=== PATIENT | female | born 1955 | race Caucasian/White ===

== ENCOUNTER 2017-08-30 17:16 | Emergency (ER) | payer BC ==
[~2017-08-30] VITALS: Ht 167.6 cm; Wt 81.7 kg
[2017-08-30] MEDS ORDERED: OMEPRAZOLE20 MG PO (17:43)
--- OUTSIDE RECORDS SUMMARY | 2017-08-30 18:04 | XMS | Clinical Summary ---
Demographics + + + | Address | [address] | | | [place] [address] | + + + | Home Phone | | + + + | Preferred Language | Unknown | + + + | Marital Status | | + + + | Samaritan Affiliation | NRP | + + + | Race | White | + + + | Ethnic Group | Not or | + + + Author + + + | Author | [facility] | + + + | Organization | [facility] | + + + | Address | Unknown | + + + | Phone | Unavailable | + + + Support + + + + + | Name | Relationship | Address | Phone | + + + + + | NEVILLE TEJADA | ECON | [address] | | | | | [place] | | | | | [phone] | | + + + + + Care Team Providers + +------+ + | Care Vein Pumper Name | Role | Phone | + +------+ + | Giovany Robert MD | PP | | + +------+ + Source Comments CHAD is fully live on both EpicCare Ambulatory and EpicCare InPatient.Replaced By [facility] Allergies + + + + + + | Active Allergy | Reactions | Severity | Noted | Comments | | | | | Date | | + + + + + + | Oxycodone | Nausea | Medium | 06/06/20 | | | | | | 11 | | + + + + + + | Oxycodone Hcl | Nausea | Medium | 06/06/20 | | | | | | 11 | | + + + + + + | Sulfa (Sulfonamide | Hives | | 09/29/19 | | | Antibiotics) | | | 11 | | + + + + + + Current Medications + + + +---------+------+------+-------+ | Prescription | Sig. | Disp. | Refills | Star | End | Statu | | | | | | t | Date | s | | | | | | Date | | | + + + +---------+------+------+-------+ | omeprazole 20 mg | Take 20 mg by mouth | | | | | Activ | | Oral Capsule, | once daily in the | | | | | e | | Delayed | morning. | | | | | | | Release(E.C.) | | | | | | | + + + +---------+------+------+-------+ | acetaminophen 325 | Take 1-2 Tabs by | 100 Tab | 0 | 02/2 | | Activ | | mg Oral | mouth every six | | | 7/20 | | e | | TabletIndications: | hours as needed for | | | 12 | | | | Arthritic Pain, Pain | fever or moderate | | | | | | | | pain. Indications: | | | | | | | | Arthritic Pain, Pain | | | | | | + + + +---------+------+------+-------+ | multivitamin oral | Take 1 capsule by | | | | | Activ | | capsule | mouth once daily. | | | | | e | + + + +---------+------+------+-------+ | ERGOCALCIFEROL, | Take 1 tablet by | | | | | Activ | | VITAMIN D2, (VITAMIN | mouth once daily. | | | | | e | | D ORAL) | | | | | | | + + + +---------+------+------+-------+ | CALCIUM ORAL | Take 2 tablets by | | | | | Activ | | | mouth once daily. | | | | | e | | | Gummark bear | | | | | | + + + +---------+------+------+-------+ Active Problems + + + | Problem | Noted Date | + + + | Severe chronic ulcerative colitis (HCC) | 11/22/2010 | + + + | Physical deconditioning | 10/06/2010 | + + + | S/P IVC filter | 10/04/2010 | + + + + + | Overview: Consider removal 6 weeks post insertion. | + + + + + | S/P thoracotomy | 09/30/2010 | + + + | PE (pulmonary embolism) | 09/28/2010 | + + + + + | Overview: Hematology recommends indefinite anticoagulation. | + + + + + | GI bleed | 09/28/2010 | + + + | Ulcerative colitis (HCC) | 09/28/2010 | + + + | Psoriasis | 09/28/2010 | + + + Family History + + +------+ + | Medical History | Relation | Name | Comments | + + +------+ + | Cancer | Father | | melanoma | + + +------+ + | Diabetes | Father | | | + + +------+ + | Heart Disease | Father | | s/p pacer | + + +------+ + | Hypertension | Father | | | + + +------+ + | Cancer | Mother | | breast | + + +------+ + | Dementia | Mother | | | + + +------+ + | Cancer | Paternal | | colon cancer at 70+ | | | Grandmoth | | | | | er | | | + + +------+ + | GI | Neg Hx | | no IBD | + + +------+ + + +------+--------+ + | Relation | Name | Status | Comments | + +------+--------+ + | Father | | | | + +------+--------+ + | Mother | | | | + +------+--------+ + | Paternal Grandmother | | | | + +------+--------+ + Social History + +-------+ +--------+------+ | Tobacco Use | Types | Packs/Day | Years | Date | | | | | Used | | + +-------+ +--------+------+ | Never Smoker | | | | | + +-------+ +--------+------+ + +---+---+---+ | Smokeless Tobacco: | | | | | Never Used | | | | + +---+---+---+ + + +---------+ + | Alcohol Use | Drinks/We | oz/Week | Comments | | | ek | | | + + +---------+ + | No | | | none since 2009 | + + +---------+ + + + + | Sex Assigned at | Date Recorded | | | | + + + | Not on file | | + + + Last Filed Vital Signs + + + + | Vital Sign | Reading | Time Taken | + + + + | Blood Pressure | 150/92 | 10/23/2016 1:40 PM PDT | + + + + | Pulse | 76 | 10/23/2016 1:40 PM PDT | + + + + | Temperature | 36.7 C (98.1 F) | 10/23/2016 1:40 PM PDT | + + + + | Respiratory Rate | 16 | 10/23/2016 1:40 PM PDT | + + + + | Oxygen Saturation | 100% | 10/23/2016 1:40 PM PDT | + + + + | Inhaled Oxygen | - | - | | Concentration | | | + + + + | Weight | 88.8 kg (195 lb 11.2 | 10/23/2016 1:40 PM PDT | | | oz) | | + + + + | Height | 165.1 cm (5' 5") | 10/23/2016 1:40 PM PDT | + + + + | Body Mass Index | 32.57 | 10/23/2016 1:40 PM PDT | + + + + Plan of Treatment +--------+---------+ + + + | Date | Type | Specialty | Care Team | Description | +--------+---------+ + + + | 10/22/ | Office | | Gabriella Ramos MD | | | 2018 | Visit | | [address] | | | | | | [place], | | | | | | [place] [address] | | | | | | [phone] | | | | | | | | +--------+---------+ + + + + + + + + | Health Maintenance | Due Date | Last Done | Comments | + + + + + | INFLUENZA VACCINE | | | | | (FLU SHOT) | 7 | | | + + + + + Results Not on filefrom Last 3 Months
--- OUTSIDE RECORDS SUMMARY | 2017-08-30 18:04 | XMS | Clinical Summary ---
Demographics + + + | Address | [address] | | | [place] [address] | + + + | Home Phone | | + + + | Preferred Language | Unknown | + + + | Marital Status | | + + + | Faith Affiliation | NRP | + + + | Race | White | + + + | Ethnic Group | Not or | + + + Author + + + | Author | [facility] | + + + | Organization | [facility] | + + + | Address | Unknown | + + + | Phone | Unavailable | + + + Support + + + + + | Name | Relationship | Address | Phone | + + + + + | NEVILLE TEJADA | ECON | [address] | | | | | [place] | | | | | [address] | | + + + + + Care Team Providers + +------+ + | Care Scratcher Name | Role | Phone | + +------+ + | Giovany Robert MD | PP | | + +------+ + Source Comments CHAD is fully live on both EpicCare Ambulatory and EpicCare InPatient.[facility] Allergies + + + + [...] | | | | | [place], | | | | | | [place] [address] | | | | | | [phone] | | | | | | | [...]
[2017-08-30] MEDS ORDERED: MECLIZINE HCL25 MG PO (21:32)
--- NOTE | 2017-08-30 22:33 | EKG ---
[facility] [address] [facility] [place] [address] Signed Normal sinus rhythm Minimal voltage criteria for LVH, may be normal variant Borderline ECG No previous ECGs available Confirmed by LARISSA NARANJO MD ([id number]) on 08/30/2017 10:33:28 PM Electronically Signed By: LARISSA NARANJO MD 08/30/17 2233 PATIENT NAME: APRIL TEJADA NEIL Electrocardiogram DATE OF : 57 PHYSICIAN: LARISSA NARANJO MD REPORT #: [id number] REPORT IS CONFIDENTIAL AND NOT TO BE RELEASED WITHOUT AUTHORIZATION
== END 2017-08-30 22:10 | disposition home or self-care (01) ==
LOC: ED 17:16
DX: H83.09 Labyrinthitis, unspecified ear (principal); Z88.2 Allergy status to sulfonamides; Z79.899 Other long term (current) drug therapy
CPT/HCPCS: 70496; 70498; 80053; 85025; 93005; 93010; 96374; 99284; J2550; J7120; Q9967

== ENCOUNTER 2018-12-03 11:33 | Observation (INO) | payer BC ==
[~2018-12-03] VITALS: Ht 167.6 cm; Wt 88.5 kg
[~2018-12-03 11:33] MED LIST: MECLIZINE HCL25 MG PO; OMEPRAZOLE20 MG PO
--- NOTE | 2018-12-03 13:40 | NUR ---
PT ARRIVED TO FLOOR VIA STRETCHER. SBA TO TRANSFER TO BED. PAIN REPORTED 2/10. ABDOMEN FEELS "BLAOTED". ABDOMEN SOFT AND NONDISTENDED. BOWEL TONES ACTIVE. ORIENTED TO ROOM. CALL LIGHT IN REACH. FLAGYL AND D5LR STARTED. DENEIS FURTHER NEEDS.
--- NOTE | 2018-12-03 17:49 | NUR ---
ROUNDED WITH DR SADLER. PLAN OF CARE DISCUSSED. QUESTIONS AND CONCERNS ADRESSED. NEW ORDERS RECEIVED.
--- NOTE | 2018-12-03 18:00 | NUR ---
PT REPORTING 5/10 PAIN. PRN PAIN MEDICATION GIVEN.
--- NOTE | 2018-12-03 19:07 | NUR ---
SHIFT REPORT RECEIVED FROM DAYSVAFT SKYLER MUNSON AT BEDSIDE. PT RESTING IN BED, EYES OPEN, RR WNL. PT REPORTS NAUSEA, PRN ZOFRAN ADMINISTERED BY SKYLER MUNSON. IV FLUIDS INFUSING PER MD ORDERS, IV SITE WNL. PT DENIES ADDITIONAL NEEDS, CALL LIGHT IN REACH.
--- NOTE | 2018-12-03 19:21 | NUR ---
PT REPORTING NAUSEA. 4MG ZOFRAN GIVEN. FLUIDS CHANGED PER NEW ORDER TO 100ML/HR. DR SADLER CALLED TO VERIFY ANTIBIOTIC. ORDERS TO CHANGE TIME FOR AM.
--- NOTE | 2018-12-03 20:30 | NUR ---
ASSESSMENT COMPLETE. PT A/OX4, DENIES PAIN. SCHEDULED IV ABX INFUSING PER MD ORDERS, IV SITE WNL. SCHEDULED MEDICATIONS ADMINISTERED (SEE EMAR). BOWEL TONES ACTIVE, PT DENIES NAUSEA. REPORTS EPIGASTRIC TENDERNESS. NO FURTHER NEEDS, CALL LIGHT IN REACH.
--- NOTE | 2018-12-03 21:41 | NUR ---
PT CALLED EXPERIENCING 8/10 PAIN. ADMINISTERED 1MG DILAUDID SLOW IVP. PT DENIES FURTHER NEEDS AT THIS TIME. ABX COMPLETE AND IV FLUIDS ARE NOW INFUSING. CALL LIGHT IS CLOSE.
--- NOTE | 2018-12-03 23:29 | NUR ---
PT RESTING IN BED, EYES CLOSED, RR WNL. NO DISTRESS NOTED, BILATERAL SCD'S IN PLACE. IV FLUIDS INFUSING PER MD ORDERS, IV SITE WNL. CALL LIGHT IN REACH.
--- NOTE | 2018-12-04 00:05 | NUR ---
PT NPO AT THIS TIME FOR SURGERY. CALL LIGHT IN REACH.
--- NOTE | 2018-12-04 00:50 | NUR ---
PT REPORTS RETURN OF NAUSEA, EMESIS BAG PROVIDED. PRN ZOFRAN ADMINISTERED. NEW BAG OF IV FLUIDS INFUSING, IV SITE WNL. PT REPORTS INCREASE IN PAIN,WILL MONITOR NAUSEA AND WAIT FOR PT TO CALL FOR PAIN MEDICATION PER PT REQUEST. KIRSTIN QUEZADA IN ROOM TO COLLECT VS.
--- NOTE | 2018-12-04 02:20 | NUR ---
PT RESTING IN BED, REPORTING 9/10 PAIN, 0.5MG PRN DILAUDID ADMINISTERED PER PT REQUEST. IV ABX INFUSING PER MD ORDERS, IV SITE WNL. PT DENIES NAUSEA AFTER RECENT ZOFRAN ADMINISTRATION. BOWEL TONES ACTIVE, TENDERNESS NOTED. NO FURTHER NEEDS, CALL LIGHT IN REACH. VSS.
--- NOTE | 2018-12-04 05:10 | NUR ---
UA COLLECTED AND SENT TO LAB BY KIRSTIN QUEZADA. ORDERS STATE PT WAS NOT ON ABX AT TIME OF ORIGINAL ORDER. LAB NOTIFIED THAT AT TIME OF ACTUAL COLLECTION, PT WAS ON FLAGYL AND ROCEPHIN.
--- NOTE | 2018-12-04 05:30 | NUR ---
PRN DILAUDID ADMINISTERED FOR 6-7/10 ABDOMINAL PAIN. VSS AND RECORDED, PT ON RA, RR WNL. PRE-OP SURGERY WIPES COMPLETED WITH HELP FROM THIS RN. LR HUNG AT BEDSIDE. IV FLUIDS INFUSING PER MD ORDERS, SITE WNL. PT DENIES ADDITIONAL NEEDS, CALL LIGHT IN REACH.
--- NOTE | 2018-12-04 06:40 | CONS ---
[facility] [address] [place], [place] [address] Signed DATE OF CONSULTATION: 12/03/2018 CHIEF COMPLAINT: Right upper quadrant abdominal pain. HISTORY OF PRESENT ILLNESS: Keyanna is a 63-year-old female, who presents with rather significant right upper quadrant/epigastric abdominal pain radiating into her flank, starting at about 01:30 this morning. It was so intense she had her bring her into the emergency room for evaluation. White count is borderline 11.7. Liver function tests were fine. Ultrasound was performed. She has a thickened gallbladder wall 5 mm with some sludge and possibly a 3.3 cm stone in the gallbladder neck. She has a positive Tello sign, but no pericholecystic fluid in the common bile duct at 6 mm. Consequently, I was asked to admit her as a general surgeon on-call. In the meantime, she has received some IV fluids and some Rocephin and Flagyl. PAST MEDICAL HISTORY: Ulcerative colitis, gastroesophageal reflux disease, and pulmonary embolism. PAST SURGICAL HISTORY: Right lung surgery in 2010 for a trauma associated with treatment of saddle embolism. She had a total abdominal proctocolectomy with an ileoanal J-pouch anastomosis done by Dr. Gabriella Ramos. SOCIAL HISTORY: She does not smoke or drink. She is to her , at [phone]. They have one son. 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 They prefer the [facility]. She does drive. Dr. Apple Rutherford is her primary care provider. FAMILY HISTORY: Paternal grandmother may have had ulcerative colitis. REVIEW OF SYSTEMS: She had 10 systems reviewed and nothing new to add. ALLERGIES: Sulfa. MEDICATIONS: Prilosec. PHYSICAL EXAMINATION: VITAL SIGNS: Blood pressure 133/84, heart rate 72, respiratory rate 16, temperature is Electronically Signed By: PHILOMENA SADLER MD 12/04/18 0640 PATIENT NAME: KEYANNA TEJADA NEIL CONSULTATION DATE OF : 57 REPORT #: [id number] PHYSICIAN: PHILOMENA SADLER MD PCP: APPLE RUTHERFORD MD REPORT IS CONFIDENTIAL AND NOT TO BE RELEASED WITHOUT AUTHORIZATION [facility] [address] [place], [place] [address] Signed 97.7. She is 96% on room air. She is 88 kg, at 5 feet 6 inches. GENERAL: Keyanna is a 63-year-old female, lying supine in her hospital bed. Her is at the bedside. She does not appear systemically ill or toxic. She is not jaundiced. LUNGS: Her lungs are clear to auscultation bilaterally. HEART: Regular rate and rhythm. ABDOMEN: Soft and flat, but she is tender in the right upper quadrant somewhat and also somewhat over towards the epigastrium. LABORATORY DATA: Her white blood cell count 11.7, neutrophils 77, hemoglobin 12, BUN 16, creatinine 0.7, total bilirubin 0.3, AST 16, ALT 23, alkaline phosphatase 53, albumin is 4, lipase 17. RADIOGRAPHIC STUDIES: Ultrasound shows the fatty liver and sludge in the gallbladder and possibly a 3.3 cm stone with a positive Tello sign. The gallbladder wall is thickened at 5 mm and the common bile duct is borderline at 6 mm. There is no pericholecystic fluid. ASSESSMENT/PLAN: Keyanna is a 63-year-old female, who presents with acute cholecystitis, cholelithiasis. She has been admitted, given IV fluids, antibiotics, and pain control. I had a long discussion with Keyanna and her regarding the above findings. We have discussed the location and function of the gallbladder. We have discussed laparoscopic versus open cholecystectomy. We have also reviewed the expected intraop and postop course. There is risk to surgery including, but not limited to bleeding, infection, scarring, change in contour of the skin, damage to bowel, damage to main bile duct, and incisional hernias. They had expressed understanding and would like to proceed. We are going to go ahead and schedule her for the morning. In the meantime, I have been called urgently in the ER for another surgery. They have expressed understanding and agreed to above plan. Philomena Sadler MD ALB/MODL /[id number] cc: Apple Rutherford MD Electronically Signed By: PHILOMENA SADLER MD 12/04/18 0640 PATIENT NAME: KEYANNA TEJADA NEIL CONSULTATION DATE OF : 57 REPORT #: [id number] PHYSICIAN: PHILOMENA SADLER MD PCP: APPLE RUTHERFORD MD REPORT IS CONFIDENTIAL AND NOT TO BE RELEASED WITHOUT AUTHORIZATION [address] [address] Signed Philomena Sadler MD Copies: APPLE RUTHERFORD MD, ANDREW L MD ~ Electronically Signed By: PHILOMENA SADLER MD 12/04/18 0640 PATIENT NAME: KEYANNA TEJADA CONSULTATION DATE OF : 57 REPORT #: [id number] PHYSICIAN: PHILOMENA SADLER MD PCP: APPLE RUTHERFORD MD REPORT IS CONFIDENTIAL AND NOT TO BE RELEASED WITHOUT AUTHORIZATION
--- NOTE | 2018-12-04 07:19 | NUR ---
REPORT RECEIVED FROM SHEET METAL MECHANIC RN. PT IN BED. D5LR AT 100 INFUSING. REPORTS PAIN 12/07. DENEIS NAUSEA. CALL LIGHT IN REACH. DENEIS NEEDS.
--- NOTE | 2018-12-04 07:43 | NUR ---
PT OFF FLOOR TO SURGERY.
--- NOTE | 2018-12-04 09:49 | NUR ---
12/04/18 0949 Yohana Nichole 0966 PATIENT ARRIVES TO PACU SLEEPING, DOES NOT RESPOND TO VERBAL STIMULI. RESP EVEN AND UNLABORED, MASK AT 6 LITERS, SNORING AT TIMES.
--- NOTE | 2018-12-04 11:04 | NUR ---
PT ARRIVED TO FLOOR VIA STRETCHER. 02/06 REPORTED "GAS" PAIN. LAP SITES X4 C/D/I. 2L NC IN PLACE. SATTING AT 95%. PT IS DROWSY AND ORIENTED. VSS. CALL LIGHT IN REACH. CPOX IN PLAXCE.
--- NOTE | 2018-12-04 11:10 | OR ---
[facility] [address] [place], [place] [address] Signed DATE OF OPERATION: 12/04/2018 SURGEON: Philomena Salder MD PREOPERATIVE DIAGNOSIS: Acute cholecystitis and cholelithiasis (3.3 cm). POSTOPERATIVE DIAGNOSIS: Acute cholecystitis and cholelithiasis (3.3 cm). PROCEDURE PERFORMED: Laparoscopic cholecystectomy with intraoperative cholangiogram. ESTIMATED BLOOD LOSS: None. FINDINGS: Keyanna indeed had an oblong-shaped 3.3 cm gallstone in the neck of her gallbladder. She had significant gallbladder wall thickening and edema. The intraoperative cholangiogram was unremarkable. INDICATIONS: Keyanna is a 63-year-old female with a history of ulcerative colitis, requiring a total abdominal proctocolectomy with ileoanal J-pouch anastomosis at [facility]. Overall, she is otherwise quite healthy. She noticed on the day of admission, she was having significant right upper quadrant epigastric abdominal pain radiating to her back. She came to our local emergency room for evaluation. White count was at 11.7 with unremarkable liver function test. Ultrasound was ordered and she does have a fatty liver with a thickened gallbladder wall at 5 mm. There was sludge in the gallbladder and what looks like a 3.3 cm gallstone. She had a positive Tello sign. The common bile duct was borderline at 6 mm. I have been asked to admit her late last evening with respect to the above. She was given pain control, IV fluids and antibiotics. I met with Keyanna and her last night. We know each other for quite some time. I reviewed with them the above findings. We reviewed the location and function of the gallbladder. I have discussed with them the difference between laparoscopic and open cholecystectomy. They understand expected intraop and postop course. We did review the risks including, but not limited to bleeding, infection, scarring, change in contour of the skin, damage to bowel, damage to the main bile duct, incisional hernias and other unforeseen comorbidities. They had expressed understanding and wished to proceed. Electronically Signed By: PHILOMENA SADLER MD 12/04/18 1110 PATIENT NAME: KEYANNA TEJADA OPERATIVE REPORT DATE OF : 57 REPORT #: [id number] PHYSICIAN: PHILOMENA SADLER MD PCP: APPLE RUTHERFORD MD REPORT IS CONFIDENTIAL AND NOT TO BE RELEASED WITHOUT AUTHORIZATION [address] [address] Signed DESCRIPTION OF PROCEDURE: I met with Keyanna and her once again in her preop area. After answering the questions, we took Keyanna into the operating room and placed in a supine position under general endotracheal tube anesthesia. She was already on preoperative antibiotics along with subcutaneous heparin. SCDs were in place. She was then prepped and draped in the usual sterile fashion. All trocars were then placed in usual positions under direct visualization of camera without difficulty. The intraoperative findings were as above. The gallbladder was grasped and elevated in the right upper quadrant. We had taken pictures throughout for photodocumentation. We dissected out the triangle of Calot and we put a clip across the cystic artery and it was divided. The intraoperative cholangiocatheter was inserted into the cystic duct. The intraoperative cholangiogram was then performed. The contrast flowed quite readily into the duodenum. We had one tiny air bubble, but otherwise no filling defects. After this, the cystic duct stump was secured with a PDS Endoloop and a single clip was placed across the cystic duct stump to christianne its location. The gallbladder was then slowly and very carefully removed from the gallbladder fossa with the help of cautery. We had just a little bit of bleeding along the medial edge of the liver bed down deep. Some mild cautery that seemed to stop quite nicely and was that way actually the remainder of the case. Nevertheless, we decided to go ahead and place some Surgicel in that area. After this, the gallbladder was placed into an EndoCatch bag. We used our laparoscopic suturing device to pass 0 Vicryl suture on either side of the fascia of the subxiphoid trocar site. This was tied down to close this fascia primarily. After this, the gas was allowed to escape and escape and all trocars were removed. We had to double the length of our supraumbilical fascial defect in order to remove the gallbladder with the large gallstone. The gallbladder was opened on the back table by our circulating nurse. Again, pictures were taken for photodocumentation. We used multiple interrupted [id number] and simple 0 Vicryl sutures then to close the fascia of the supraumbilical trocar site. Local anesthetic was copiously injected into all trocar sites. Each trocar site was irrigated and suctioned out until clear. The skin and dermis of each trocar site were then closed with interrupted 3-0 subcuticular Monocryl sutures. Dry gauze and tape were applied to all incisions. Keyanna was awakened from anesthesia, extubated in the OR, and taken to recovery room in stable condition. Philomena Sadler MD ALB/MODL /[id number] Electronically Signed By: PHILOMENA SADLER MD 12/04/18 1110 PATIENT NAME: KEYANNA TEJADA OPERATIVE REPORT DATE OF : 57 REPORT #: [id number] PHYSICIAN: PHILMOENA SADLER MD PCP: APPLE RUTHERFORD MD REPORT IS CONFIDENTIAL AND NOT TO BE RELEASED WITHOUT AUTHORIZATION [address] [place], [place] [address] Signed cc: MD Apple Solis MD Copies: PHILOMENA SADLER MD, RUSSELL BARR MD ~ Electronically Signed By: PHILOMENA SADLER MD 12/04/18 1110 PATIENT NAME: KEYANNA TEJADA OPERATIVE REPORT DATE OF : 57 REPORT #: [id number] PHYSICIAN: PHILOMENA SADLER MD PCP: APPLE RUTHERFORD MD REPORT IS CONFIDENTIAL AND NOT TO BE RELEASED WITHOUT AUTHORIZATION
--- NOTE | 2018-12-04 12:08 | NUR ---
PT ASSESSED. LAP SITES X4 C/D/I. BOWEL TONES HYPOACTIVE. PT WITH EYES CLOSED. WAKES BREIFLY THEN FALLS ASLEEP. VS TAKEN AND STABLE. CALL LIGHT IN REACH. 2L NC IN PLACE. SATS AT 97%. CPOX ON.
--- NOTE | 2018-12-04 12:25 | NUR ---
PT STILL IN PACU, WAITING IN RM. CONNECTED WITH HIM, HE WAVED AND THANKED ME. WILL FOLLOW NEEDED
[2018-12-04] MEDS ORDERED: NORCO 5-325 TA1 EACH PO (14:08)
[2018-12-04] MEDS ORDERED: ADVIL200 MG PO (14:10)
--- NOTE | 2018-12-04 15:03 | NUR ---
CAREER TECHNICAL EDUCATION INSTRUCTOR DID HER SURGICAL WIPE DOWN.
--- NOTE | 2018-12-04 15:04 | NUR ---
PATIENT IS SLEEPING.
--- NOTE | 2018-12-04 16:00 | NUR ---
SPOKE WITH STAFF NURSES. NO KNOWN CASE MANAGEMENT NEEDS AT THIS TIME. STAFF WILL PLACE CONSULT IF NEED ARISES. DEFER ASSESSMENT AT THIS TIME.
--- NOTE | 2018-12-04 17:00 | NUR ---
PT OOB TO AMBULATE SBA IN HALLS. DENIES ABDOMINAL PAIN. REPORTS "GAS" PAIN; TYLENOL GIVEN.
--- NOTE | 2018-12-04 18:19 | NUR ---
PT FINISHED REGULAR DIET WITH NO NAUSEA OR VOMITTING. BOWEL TONES ACVTIVE. PAIN WELL CONTROLLED. VSS. PLAN FOR DISCHARGE.
== END 2018-12-04 18:33 | disposition home or self-care (01) ==
LOC: ED 11:33 → MS 11:34 → ED 13:19 → MS 13:19
PROVIDERS: ADMIT Colon & Rectal Surgery
PROC: BF101ZZ Fluoroscopy of Bile Ducts using Low Osmolar Contrast (ICD-10-PCS; 2018-12-04)
PROC: 0FT44ZZ Resection of Gallbladder, Percutaneous Endoscopic Approach (ICD-10-PCS; principal; 2018-12-04 08:19)
DX: K80.12 Calculus of gallbladder with acute and chronic cholecystitis without obstruction (principal); K76.0 Fatty (change of) liver, not elsewhere classified; K21.9 Gastro-esophageal reflux disease without esophagitis; Z90.49 Acquired absence of other specified parts of digestive tract; Z79.899 Other long term (current) drug therapy; Z88.2 Allergy status to sulfonamides; Z86.711 Personal history of pulmonary embolism; Z87.19 Personal history of other diseases of the digestive system
CPT/HCPCS: 00790; 36415; 74300; 76705; 80053; 81001; 83690; 85025; 96361; 96372; 96376; 99285-25; G0378; J0330; J0696; J1100; J1170; J1644; J1885; J2250; J2405; J2704; J3010; J3475; J7030; J7120; Q9967

== ENCOUNTER 2018-12-08 20:48 | Emergency (ER) | payer BC ==
[~2018-12-08] VITALS: Ht 167.6 cm; Wt 88.5 kg
[~2018-12-08 20:48] MED LIST changes: +ADVIL200 MG PO; +NORCO 5-325 TA1 EACH PO
--- OUTSIDE RECORDS SUMMARY | 2018-12-08 20:50 | XMS ---
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 [place] VISIT COUNT (12 MO.) 2 [facility] TOTAL 2 NOTE: Visits indicate total known visits. ED/UCC VISIT TRACKING (12 MO.) 12/08/2018 20:48 [facility] [place] TYPE: Emergency COMPLAINT: - SOB 12/03/2018 11:33 [facility] [place] TYPE: Emergency COMPLAINT: - ACUTE CHOLECYSTITIS INPATIENT VISIT TRACKING (12 MO.) 12/03/2018 11:34 [facility] [place] TYPE: Observation COMPLAINT: - ACUTE CHOLECYSTITIS DIAGNOSES: - Other arc cutter (current) drug therapy - Allergy status to sulfonamides status - Right upper quadrant pain - Calculus of gallbladder with acute and chronic cholecystitis without obstruction - Gastro-esophageal reflux disease without esophagitis - Calculus of gallbladder with acute cholecystitis without obstruction - Personal history of pulmonary embolism - Personal history of other diseases of the digestive system - Acquired absence of other specified parts of digestive tract - Fatty (change of) liver, not elsewhere classified [email or web address]
--- NOTE | 2018-12-09 06:03 | EKG ---
[facility] [address] [facility] [place] [address] Signed Normal sinus rhythm with sinus arrhythmia Voltage criteria for left ventricular hypertrophy Nonspecific ST abnormality Abnormal ECG When compared with ECG of 30-AUG-2017 17:25, T wave amplitude has decreased in Lateral leads QT has shortened Confirmed by DAYSI GRIFFIN MD ([id number]) on 12/09/2018 6:03:30 AM Electronically Signed By: DAYSI GRIFFIN MD 12/09/18 0603 PATIENT NAME: APRIL TEJADA NEIL Electrocardiogram DATE OF : 57 PHYSICIAN: DAYSI GRIFFIN MD REPORT #: [id number] REPORT IS CONFIDENTIAL AND NOT TO BE RELEASED WITHOUT AUTHORIZATION
== END 2018-12-09 00:14 | disposition home or self-care (01) ==
LOC: ED 20:48
DX: J98.11 Atelectasis (principal); Z90.49 Acquired absence of other specified parts of digestive tract; Z88.2 Allergy status to sulfonamides; Z79.899 Other long term (current) drug therapy
CPT/HCPCS: 71260; 80053; 83735; 84484; 85025; 93005; 93010; 99285-25; Q9967